=== PATIENT | female | born 1960 | race Caucasian/White ===

== ENCOUNTER 2019-09-22 05:42 | Day surgery (SDC) | payer MEDICARE ==
[~2019-09-22] VITALS: Ht 162.6 cm; Wt 83.0 kg
[~2019-09-22 05:42] MED LIST: ACET-1600 PO; ALPR0.254 PO; DIVA-61 PO; FURO20TA3 PO; METF500T17 PO; OLAN10TA9 PO
[2019-09-22] MEDS ORDERED: BUPIVACAINE/PF-EPI 0.5% 1:200K ONE (06:30)
[2019-09-22] MEDS ORDERED: LIDOCAINE-MPF 1%, 5ML ONE (06:31)
[2019-09-22 06:47] VITALS: BP 127/80
[2019-09-22] MEDS ORDERED: CHLORHEXIDINE 15 ML UDC ONE (07:00)
[2019-09-22] MEDS ORDERED: FENTANYL PF 250 MCG/5ML ONE (07:19)
[2019-09-22] MEDS ORDERED: CHLORHEXIDINE 15 ML UDC MM STA (07:45)
[2019-09-22] MEDS: LACTATED RINGERS 1,000 ML IV SCH ×2 (07:45→07:49)
[2019-09-22] MEDS ORDERED: PROMETHAZINE 25 MG SUPP PR PRN (08:00)
[2019-09-22] MEDS ORDERED: HYDROmorphone 1 MG/ML, 1ML INJ IVPush PRN (08:00)
[2019-09-22] MEDS ORDERED: PROMETHAZINE 25 MG/ML, 1ML IVPush PRN (08:00)
[2019-09-22] MEDS ORDERED: OXYcodone 5 MG/5 ML ORAL.SOL UDC PO PRN (08:00)
[2019-09-22] MEDS ORDERED: DIAZEPAM 5 MG/ML, 2ML IVPush PRN (08:00)
[2019-09-22] MEDS ORDERED: LORazepam 2 MG/ML, 1ML IVPush PRN (08:00)
[2019-09-22] MEDS ORDERED: ACETAMINOPHEN 325 MG TABLET PO PRN (08:00)
[2019-09-22] MEDS ORDERED: ONDANSETRON 2MG/ML, 2ML IVPush PRN (08:00)
[2019-09-22] MEDS ORDERED: LABETALOL 5MG/ML, 20ML IV PRN (08:00)
[2019-09-22] MEDS ORDERED: hydrALAzine 20 MG/ML, 1ML IV PRN (08:00)
[2019-09-22] MEDS ORDERED: FENTANYL PF 100 MCG/2ML IV PRN (08:00)
[2019-09-22] MEDS ORDERED: SUCCINYLCHOLINE 20 MG/ML, 10ML ONE (08:07)
[2019-09-22] MEDS ORDERED: ONDANSETRON 2MG/ML, 2ML ONE (08:07)
[2019-09-22] MEDS ORDERED: DEXAMETHASONE 4 MG/ML, 1ML ONE (08:07)
[2019-09-22] MEDS ORDERED: PROPOFOL 10 MG/ML, 20ML ONE (08:07)
[2019-09-22] MEDS ORDERED: ROCURONIUM 10MG/ML,5ML ONE (08:07)
[2019-09-22] MEDS ORDERED: CEFAZOLIN 1,000 MG ONE (08:07)
[2019-09-22] MEDS ORDERED: NEOSTIGMINE 1 MG/ML, 10ML ONE (08:07)
[2019-09-22] MEDS ORDERED: GLYCOPYRROLATE 0.2MG/1ML, 5ML ONE (08:07)
[2019-09-22] MEDS ORDERED: EPHEDRINE 50 MG/ML, 1ML ONE (08:08)
[2019-09-22] MEDS ORDERED: OMNIPAQUE 350 MG/ML, 50 ML BOTTLE ONE (10:06)
== END 2019-09-22 11:12 | disposition home or self-care (01) ==
LOC: OUT 05:42
PROVIDERS: ATTEND Orthopaedic Surgery Orthopaedic Surgery of the Spine
DX: M80.88XA Other osteoporosis with current pathological fracture, vertebra(e), initial encounter for fracture (principal); I11.0 Hypertensive heart disease with heart failure; I50.9 Heart failure, unspecified; E11.9 Type 2 diabetes mellitus without complications; Z88.5 Allergy status to narcotic agent; Z88.0 Allergy status to penicillin; Z79.899 Other long term (current) drug therapy; Z90.710 Acquired absence of both cervix and uterus; Z90.49 Acquired absence of other specified parts of digestive tract; Z98.890 Other specified postprocedural states
CPT/HCPCS: 22514; 72100; 82962; 88307; 88311; C1713; J0330; J0690; J1100; J2405; J2704; J2710; J3010; J7120; Q9967